=== PATIENT | female | born 1970 | race Caucasian/White ===

== ENCOUNTER 2023-05-18 11:05 | Emergency (ER) | payer MEDICAID, SELFPAY ==
--- NOTE | ~2023-05-18 | CT_ITS ---
EXAMINATION: CT HEAD WITHOUT CONTRAST CLINICAL INFORMATION: Expressive aphasia COMPARISON: None available. TECHNIQUE: Contiguous axial imaging was performed from the skull base to vertex without intravenous administration of contrast. This CT examination was performed using dose optimization techniques as appropriate, variously including the following: *Automated exposure control *Adjustment of mA and/or kV according to patient size (this includes techniques or standardized protocols for targeted exams where dose is matched to indication/reason for exam; i.e. extremities or head) *Use of iterative reconstruction technique DLP: 548 mGy-cm FINDINGS: There is no evidence of acute intracranial hemorrhage or territorial infarction. No abnormal mass effect or midline shift is seen. Welch to white matter differentiation is well preserved. No extra-axial fluid collections are identified. The ventricles are normal in size. There is no abnormal attenuation within the brain parenchyma. The osseous structures and soft tissues are normal. The mastoid air cells and visualized portions of the paranasal sinuses are well-aerated. CT/CT head/brain wo IV con IMPRESSION: No acute intracranial pathology. No evidence for any definite acute infarct or hemorrhage on CT imaging.
--- NOTE | 2023-05-18 11:13 | ED_ITS ---
HPI - Neuro Symptoms/Deficit General Chief Complaint: General Medical Stated Complaint: INTERMITTENT APHASIA X 4 DAYS Time Seen by Provider: 05/18/23 11:11 Source: patient Mode of arrival: ambulatory Limitations: no limitations History of Present Illness HPI Narrative: Patient history of alcohol use, seizure disorder been in [facility] house for last 5 months last alcohol drink was 6 months does have history of bipolar disorder anxiety depression , for last few days patient has been more stressed out and feeling more anxious no focal weakness ambulatory in a steady gait. Patient also complaining of mild headache no fall or recent seizure no family history of multiple sclerosis patient had MRI less than 6 months ago was normal Related Data Previous Rx's Medication Instructions Recorded aspirin 81 mg tablet,delayed 81 mg PO DAILY #30 tabs 05/18/23 release lorazepam 1 mg tablet (Ativan) 1 mg PO BEDTIME PRN anxiety #14 05/18/23 tabs Allergies Allergy/AdvReac Type Severity Reaction Status Date / Time No Known Allergies Allergy Verified 05/18/23 11:15 Review of Systems 2 Review of Systems: Yes all other systems are reviewed and are negative [facility] Social History Social History Alcohol intake: former Smoked in Last 30 Days: Yes Use of substances other than those prescribed or required for medical reasons: No Advance Directives: No Advance Directives Information Provided: No Patient : No Physical Exam 2 Vital Signs: Vital Signs: Last Vital Signs Temp 98.2 F 05/18/23 13:56 Pulse 80 05/18/23 14:17 Resp 16 05/18/23 14:17 BP 108/57 L 05/18/23 14:17 Pulse Ox 95 05/18/23 14:17 O2 Del Method Room Air 05/18/23 14:17 BMI result Body Mass Index 25.3 Appearance: Alert. Oriented X3. No acute distress. Slightly anxious Eyes: PERRLA, No Nystagmus ENT: Pharynx normal. Oral Mucosa moist Neck: Normal inspection. Neck supple. CVS: Normal heart rate and rhythm. Pulses normal. Respiratory: No respiratory distress. Equal air entry bilateral, no wheezing/rales/rhonchi Abdomen: Soft and nontender. Bowel sounds are present, no mass palpable, no CVA tenderness Skin: Skin warm and dry. Normal skin color. Normal skin turgor. Extremities: No lower extremity edema. No calf tenderness Neuro: Oriented X 3. No motor deficit. No sensory deficit.No cerebellar signs , cranial nerves II-XII intact speech is normal Medications Administered Discontinued Medications Generic Name Dose Route Start Last Admin Trade Name Rissa PRN Reason Stop Dose Admin Aspirin 81 mg 05/18/23 14:51 05/18/23 15:01 Aspirin 81 Mg Tab.Chew PO 05/18/23 14:52 81 mg ONCE ONE Administration Lorazepam 1 mg 05/18/23 14:45 05/18/23 15:01 Lorazepam 1 Mg Tablet PO 05/18/23 14:46 1 mg ONCE ONE Administration Medical Decision Making Medical Decision Making [facility] Narrative: Patient with increased anxiety and increased stress at sober home likely the cause for expressive aphasia no objective findings of aphasia seen in the ER patient feels stressed out when unable to get the words CT scan of the head was negative patient was started on aspirin no significant risk factor for coronary disease/CVA patient advised to take Ativan for anxiety and to relax Differential Diagnosis Differential Diagnoses: The differential diagnosis associated with the presentation includes Anxiety/panic attacks/TIA/CVA Admission/Observation Consideration of admission/observation: Escalation of care including admission/observation considered Lab Data [facility] Lab Attestation statement: I reviewed the patient's lab results. 05/18/23 11:51 05/18/23 11:51 Labs: Lab Results 05/18/23 Range/Units 11:51 WBC 7.0 (4.8-10.8) X10*3/uL RBC 4.16 L (4.20-5.50) X10*6/uL Hgb 12.6 (12.0-16.0) g/dl Hct 38.3 (37.0-47.0) % MCV 92.1 (80.0-98.0) fL MCH 30.3 (27.0-33.0) pg MCHC 32.9 (31.0-35.0) g/dl RDW 13.7 (11.0-16.0) % Plt Count 255 (160-400) X10*3/uL MPV 9.3 L (9.4-12.3) fL Immature Gran % (Auto) 0.1 (0.0-0.4) % Neut % (Auto) 61.0 (45-73) % Lymph % (Auto) 29.7 (20-40) % Webster % (Auto) 7.0 (2-11) % Eos % (Auto) 1.6 (0-4) % Baso % (Auto) 0.6 (0-2) % Lymph # (Auto) 2.1 (1.2-4.9) X10*3/uL Webster # (Auto) 0.5 (0.1-1.2) X10*3/uL Eos # (Auto) 0.1 (0.0-0.4) X10*3/uL Baso # (Auto) 0.0 (0.0-0.2) X10*3/uL Abs Immat Gran (auto) 0.01 (0.00-0.03) X10*3/uL Absolute Neuts (auto) 4.3 (2.0-8.3) x10*3/uL Absolute Nucleated RBC 0.000 (0.0-0.012) X10*3/uL Nucleated RBC % (auto) 0.0 (0.0-0.2) /100WBC Sodium 143 (135-145) mmol/L Potassium 4.7 (3.3-5.1) mmol/L Chloride 108 (96-108) mmol/L Carbon Dioxide 27 (22-29) mmol/L Anion Gap 13 (12-20) BUN 12 (9-16) mg/dL Creatinine 0.74 (0.5-1.4) mg/dL Estim Creat Clear Calc 87.6 Estimated GFR > 60 Random Glucose 118 H (60-115) mg/dL Calcium 9.7 (8.4-10.2) mg/dL Magnesium 2.2 (1.6-2.6) mg/dL Total Bilirubin 0.2 (0.0-1.0) mg/dL AST 16 (5-31) U/L ALT 17 (0-31) U/L Alkaline Phosphatase 73 (39-117) U/L Troponin I High Sens < 2.7 (<3.5-17.0) ng/L Total Protein 6.9 (6.5-8.0) g/dL Albumin 4.3 (3.5-5.0) g/dL Independent Interpretation I performed an independent interpretation of an: EKG and CT Scan Interpretation: Normal sinus rhythm heart rate 75 beats per minute normal interval normal axis no acute ST T wave changes no acute ischemia NIH Stroke Scale Internal: Initial- Upon Arrival Level of Consciousness: Alert Level of Consciousness Questions: Answers both questions correctly Level of Consciousness Commands: Performs both tasks correctly Best Gaze: Normal Visual: No visual loss Facial Palsy: Normal Motor Arm (Right): No drift Motor Arm (Left): No drift Motor Leg (Right): No drift Motor Leg (Left): No drift Limb Ataxia: Absent Sensory: Normal Best Language: No aphasia Dysarthia: Normal Extinction and Inattention: No abnormality Score: 0 Discharge Plan Discharge Clinical Impression: Anxiety Patient Disposition: Home, Self-Care Instructions: Anxiety (ED) Prescriptions: New lorazepam [Ativan] 1 mg tablet 1 mg PO BEDTIME PRN (Reason: anxiety) Qty: 14 0RF aspirin 81 mg tablet,delayed release (DR/EC) 81 mg PO DAILY Qty: 30 0RF Interventions: ED Discharge Assessment Last Done: 05/18/23 15:05 Discharge Date/Time: 05/18/23 15:31
[2023-05-18 11:15] VITALS: BP 113/54; BP 123/62; PULSE 83; PULSE 90; RESP 16; TEMP 36.8; O2SAT 96; BMI 25.3
--- NOTE | 2023-05-18 11:38 | ECG_ITS ---
Test Reason : CP Blood Pressure : / mmHG Vent. Rate : 075 BPM Atrial Rate : 075 BPM P-R Int : 158 ms QRS Dur : 082 ms QT Int : 374 ms P-R-T Axes : 039 079 067 degrees QTc Int : 417 ms Normal sinus rhythm Normal ECG No previous ECGs available Referred By: Brian Joya Electronically Signed By:Jamal Snowden
--- NOTE | 2023-05-18 11:53 | PC.NURSE ---
20gIV placed in the right AC - labs obtained/sent to lab. tech performed ekg. pt waiting to go to CT at this time.
[2023-05-18 11:54] LABS: MANUAL DIFF FLAG NO
[2023-05-18 11:57] LABS: Basophils Percent Auto 0.6 % (0-2); Eosinophils Absolute Auto 0.1 X10*3/uL (0.0-0.4); Eosinophils Percent Auto 1.6 % (0-4); Hematocrit 38.3 % (37.0-47.0); Hemoglobin 12.6 g/dl (12.0-16.0); Imm Gran Abs Auto 0.01 X10*3/uL (0.00-0.03); Imm Gran Pct Auto 0.1 % (0.0-0.4); Lymphocytes Absolute Auto 2.1 X10*3/uL (1.2-4.9); Lymphocytes Percent Auto 29.7 % (20-40); Mean Corpuscular HGB Conc 32.9 g/dl (31.0-35.0); Mean Corpuscular Hemoglobin 30.3 pg (27.0-33.0); Mean Corpuscular Volume 92.1 fL (80.0-98.0); Mean Platelet Volume 9.3 fL (9.4-12.3); Monocytes Absolute Auto 0.5 X10*3/uL (0.1-1.2); Neutrophils Absolute Auto 4.3 x10*3/uL (2.0-8.3); Platelet Count 255 X10*3/uL (160-400); Red Blood Count 4.16 X10*6/uL (4.20-5.50); Red Cell Distribution Width 13.7 % (11.0-16.0)
[2023-05-18 12:03] VITALS: BP 113/61; PULSE 78; RESP 16; O2SAT 96
[2023-05-18 12:21] LABS: Alanine Aminotransferase 17 U/L (0-31); Albumin Level 4.3 g/dL (3.5-5.0); Alkaline Phosphatase 73 U/L (39-117); Anion Gap 13 (12-20); Aspartate Amino Transferase 16 U/L (5-31); Bilirubin Total 0.2 mg/dL (0.0-1.0); Blood Urea Nitrogen 12 mg/dL (9-16); Calcium 9.7 mg/dL (8.4-10.2); Carbon Dioxide 27 mmol/L (22-29); Chloride 108 mmol/L (96-108); Creatinine Clr Calc Pharmacy 87.6; Estimated Glomerular Filt Rate > 60; Glucose Random 118 mg/dL (60-115); Magnesium 2.2 mg/dL (1.6-2.6); Potassium 4.7 mmol/L (3.3-5.1); Sodium 143 mmol/L (135-145); Total Protein 6.9 g/dL (6.5-8.0)
[2023-05-18 12:30] LABS: Troponin-I High Sensitivity < 2.7 ng/L (<3.5-17.0)
[2023-05-18 13:56] VITALS: BP 98/55; PULSE 80; RESP 16; TEMP 36.8; O2SAT 94
--- NOTE | 2023-05-18 13:57 | PC.NURSE ---
vss and up to date at this time. pt continues to rest in no apparent distress. pt waiting for results of CT at this time. respirations remain even and unlabored. call olivas placed within reach.
[2023-05-18 14:17] VITALS: BP 108/57; PULSE 80; RESP 16; O2SAT 95
[2023-05-18] MEDS: Aspirin 81 MG TAB.CHEW PO (15:01)
[2023-05-18] MEDS: LORazepam 1 MG TABLET PO (15:01)
--- NOTE | 2023-05-18 15:03 | PC.NURSE ---
medication administered per provider order.
== END 2023-05-18 15:31 | disposition home or self-care (01) ==
PROVIDERS: Emergency Provider Internal Medicine
DX: F41.9 Anxiety disorder, unspecified (principal); R51.9 Headache, unspecified; F31.9 Bipolar disorder, unspecified; G35 Multiple sclerosis
CPT/HCPCS: 36415; 70450; 80053; 83735; 84484; 85025; 93005; 99284; 99285

== ENCOUNTER → 2023-05-18 11:38 | Outpatient (BNV) | payer MEDICAID, SELFPAY | PROVIDERS: Emergency Provider Internal Medicine; Visit Provider Internal Medicine Cardiovascular Disease | DX: R07.9 Chest pain, unspecified (principal) | CPT/HCPCS: 93010 ==